=== PATIENT | male | born 1985 | race Caucasian/White ===

== ENCOUNTER 2016-07-13 02:22 | Emergency (ER) | payer OTHER ==
[~2016-07-13] VITALS: Ht 180.3 cm; Wt 77.1 kg
[2016-07-13 03:09] LABS: ABSOLUTE BASOPHIL COUNT 0 /CUMM (0.0-0.2); ABSOLUTE EOSINOPHIL COUNT 0.1 /CUMM (0.0-0.7); ABSOLUTE GRANULOCYTE CT 8.5 /CUMM (1.4-6.5); ABSOLUTE LYMPH COUNT 2.6 /CUMM (1.2-3.4); ABSOLUTE MONOCYTE COUNT 0.6 /CUMM (0.10-0.60); BASOPHIL % 0.4 % (0.0-2.0); EOSINOPHIL % 0.6 % (0-5); GRANULOCYTE % 72.1 % (42.2-75.2); HEMATOCRIT 43.4 % (42-52); MEAN CORPUSCULAR HGB 34.6 PG (27.0-31.0); MEAN CORPUSCULAR HGB CONC 34.7 G/DL (33.0-37.0); MEAN CORPUSCULAR VOLUME 99.8 FL (80.0-94.0); MEAN PLATELET VOLUME 7.8 FL (7.4-10.4); PLATELET COUNT 276 /CUMM (130-400); RBC DISTRIBUTION WIDTH 13.4 % (11.5-14.5); RED BLOOD CELL CT 4.35 /CUMM (4.70-6.10); WHITE BLOOD CELL COUNT 11.8 /CUMM (4.8-10.8)
--- NOTE | 2016-07-13 03:24 | ED PSYCHIATRIC COMPLAINT ---
See Addendum History of Present Illness General Chief Complaint: Psychiatric Related Complaint Stated Complaint: DEPRESSION ?SI Source: patient Exam Limitations: no limitations Vital Signs & Intake/Output Vital Signs & Intake/Output Vital Signs Date Time Temp Pulse Resp B/P Pulse O2 O2 Flow FiO2 Ox Delivery Rate 07/13 1400 98.0 78 17 124/76 94 Room Air 07/13 1128 97.8 74 17 118/80 96 Room Air 07/13 0711 98.6 93 16 97/52 97 Room Air 07/13 0233 98.9 110 16 133/88 97 Room Air Allergies Coded Allergies: No Known Allergies (07/13/16) Reconcile Medications No Known Home Medications Triage Note: 31yo MALE TO TRIAGE W/CO FEELING "LOST" STATES HE "LOST EVERYTHING AND HE MAY LOSE CONTROL" DENIES SI. DENIES HI. KEEEPS STATING "I FEEL UNWORTHY" ADMITS TO USING COCAINE,POT, ALCOHOL AND XANAX TONITE. Triage Nurses Notes Reviewed? yes Onset: Gradual Duration: day(s):, waxing and waning Timing: recent history Severity: moderate Associated Symptoms: anxiety, depression HPI: 31 yo gentleman presents seeking psychiatric evaluation. He reports that he has been feeling "lost", "depressed," "under a lot of stress, " but does not wish to elaborate about the details. He shares that he was recently drinking and doing various drugs this evening. He denies SI/HI/Hallucinations, but notes to being "afraid of losing control." (MARIE EVANS,RAMONA Garvin) Past History Travel History Traveled to [place] past 21 day No Medical History Any Pertinent Medical History? see below for history Neurological: NONE EENT: NONE Cardiovascular: NONE Respiratory: NONE Gastrointestinal: NONE Hepatic: NONE Renal: NONE Musculoskeletal: NONE Psychiatric: NONE Endocrine: NONE Blood Disorders: NONE Cancer(s): NONE MATTE CUTTER/Reproductive: NONE Surgical History Surgical History: none Psychosocial History What is your primary language Niuean Tobacco Use: Current Daily Use Daily Tobacco Use Amount/Type: => 5 Cigarettes daily ETOH Use: occasional use Illicit Drug Use: cocaine Family History Hx Contributory? No (MARIE EVANS,RAMONA Garvin) Review of Systems Review of Systems Constitutional: Reports: no symptoms. EENTM: Reports: no symptoms. Respiratory: Reports: no symptoms. Cardiovascular: Reports: no symptoms. GI: Reports: no symptoms. Genitourinary: Reports: no symptoms. Musculoskeletal: Reports: no symptoms. Skin: Reports: no symptoms. Neurological/Psychological: Reports: no symptoms. Hematologic/Endocrine: Reports: no symptoms. Immunologic/Allergic: Reports: no symptoms. All Other Systems: Reviewed and Negative (MARIE EVANS,RAMONA Garvin) Physical Exam Physical Exam General Appearance: well developed/nourished, mild distress Head: atraumatic Eyes: Bilateral: normal appearance. Ears, Nose, Throat: normal pharynx, normal ENT inspection, hearing grossly normal Neck: normal inspection, supple Respiratory: normal breath sounds Cardiovascular: regular rate/rhythm Gastrointestinal: soft, non-tender Extremities: normal range of motion Neurological/Psychiatric: lethargic, easily arousable. , flat affect Appearance/Memory/Insight: disheveled Behavoir/Eye Contact/Speech: cooperative Thoughts/Hallucinations: no apparent hallucination Skin: intact, normal color, warm/dry SAD PERSONS SAD PERSONS Response Value Male Sex? yes 1 Depression/Hopelessness? yes 2 Excessive Ethanol/Drug Use? yes 1 Single//? yes 1 Social Support? has no support 1 Total 6 SAD PERSONS Done? yes (MARIE EVANS,RAMONA Garvin) Progress Differential Diagnosis: drug intoxication, electrolyte abnormality, depression vs other Plan of Care: Orders Procedure Date/time Status Regular Diet 07/13 L Active Continuous Observation Monitor 07/13 1113 Active ED CRISIS PSYCH CONSULT 07/13 0325 Active URINE DRUG SCREEN FOR ER ONLY 07/13 239 Complete ETHANOL 07/13 239 Complete COMPREHENSIVE METABOLIC PANEL 07/13 239 Complete CBC WITHOUT DIFFERENTIAL 07/13 239 Complete Laboratory Tests 07/13/16 0715: Urine Opiates Screen 131.00, Methadone Screen 42, Barbiturate Screen 78, Ur Phencyclidine Scrn < 6.00, Amphetamines Screen < 100, U Benzodiazepines Scrn 166 , Urine Cocaine Screen > 1000 H, Urine Cannabis Screen > 80.00 H 07/13/16 0245: Anion Gap 18 H, Estimated GFR > 60, BUN/Creatinine Ratio 9.1, Glucose 73, Calcium 10.1, Total Bilirubin 0.8, AST 34, ALT 26, Alkaline Phosphatase 100, Total Protein 8.7 H, Albumin 5.2 H, Globulin 3.5, Albumin/Globulin Ratio 1.5, CBC w Diff NO MAN DIFF REQ, RBC 4.35 L, MCV 99.8 H, MCH 34.6 H, RDW 13.4, MPV 7.8, Gran % 72.1, Lymphocytes % 21.9, Monocytes % 5.0, Eosinophils % 0.6, Basophils % 0.4, Absolute Granulocytes 8.5 H, Absolute Lymphocytes 2.6, Absolute Monocytes 0.6, Absolute Eosinophils 0.1, Absolute Basophils 0, PUBS MCHC 34.7, Serum Alcohol 112.0 7:20 AM Patient signed out to me by Dr. Martin at change of shift. Pending crisis evaluation. 07/13/2016 10:45:09 AM Patient evaluated by crisis. Bed search in progress. (JUS WHYTE MD) Hand-Off Endorsed To: JUS WHYTE MD Endorsed Time: 0700 Pending: consult, labs (MARIE EVANS,RAMONA Garvin) Departure Departure Disposition: STILL A PATIENT Condition: Stable Clinical Impression Primary Impression: Depression Secondary Impressions: Alcohol intoxication Referrals: PATIENT HAS NO PRIMARY CARE DR (PCP/Family) Referred to [facility] as new patient No Departure Forms: Customer Survey General Discharge Information Prescriptions: Current Visit Scripts No Known Home Medications (MARIE EVANS,RAMONA Garvin) PA/DRAFTING LAYOUT WORKER Co-Sign Statement Statement: ED Attending supervision documentation- [] I saw and evaluated the patient. I have also reviewed all the pertinent lab results and diagnostic results. I agree with the findings and the plan of care as documented in the PA's/DRAFTING LAYOUT WORKER's documentation. [X] I have reviewed the ED Record and agree with the PA's/DRAFTING LAYOUT WORKER's documentation. [] Additions or exceptions (if any) to the PAs/DRAFTING LAYOUT WORKER's note and plan are summarized below: [] (JUS WHYTE MD)
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
[2016-07-14 14:41] VITALS: BP 103/58
== END 2016-07-14 15:50 | disposition short-term general hospital (02) ==
LOC: ERH 02:22
PROVIDERS: Pediatrics
DX: F32.9 Major depressive disorder, single episode, unspecified (principal); F10.129 Alcohol abuse with intoxication, unspecified; F19.10 Other psychoactive substance abuse, uncomplicated
CPT/HCPCS: 93005; 93010; G0463; G0479; G0480